=== PATIENT | male | born 1940 | race African-American/Black ===

== ENCOUNTER 2016-10-12 07:37 | Emergency (ER) | payer MEDICARE ==
[2016-10-12 07:55] VITALS: BP 164/72
[2016-10-12 08:13] LABS: Urine Bilirubin Negative (NEGATIVE); Urine Ketone Negative (NEGATIVE); Urine Nitrite Negative (NEGATIVE); Urine Protein Negative (NEGATIVE); Urine Urobilinogen Normal (NORMAL)
[2016-10-12 08:17] LABS: Urine Appearance Slightly Cloudy; Urine Blood 10 /ul (NEGATIVE); Urine Color Yellow
--- NOTE | 2016-10-12 08:18 | ERNOTE ---
ER Male HPI Date of Service: 10/12/16 Stated Complaint: UTI ER Male: testicular pain Time Seen by Provider: 10/12/16 08:07 Source: patient, RN notes reviewed Exam Limitations: no limitations Immunizations: IMMUNIZATION HX Immunizations Up to Date Yes History of Influenza Vaccine No Hx Pneumococcal Vaccination No Allergies/Adverse Reactions: Allergies No Known Allergies Allergy (Verified 10/12/16 07:54) Home Medications: HOME MEDICATIONS Acetaminophen [Tylenol] 650 mg PO Q4H PRN #0 tablet 09/22/16 [Last Taken Unknown ] Amlodipine Besylate [Norvasc] 5 mg PO HS #.1 tab 09/22/16 [Last Taken Unknown] Aspirin [Aspirin Enteric Coated] 81 mg PO DAILY #.1 tablet.dr 09/22/16 [Last Taken Unknown] Cholecalciferol (Vitamin D3) [Vitamin D3] 2,000 unit PO DAILY #.1 tablet [Last Taken Unknown] Glimepiride 4 mg PO DAILY #.1 tablet 09/22/16 [Last Taken Unknown] Lisinopril [Prinivil] 20 mg PO DAILY #.1 tablet 09/22/16 [Last Taken Unknown] Tamsulosin HCl [Flomax] 0.4 mg PO DAILY@1800 #60 cap 09/22/16 [Last Taken Unknown] Ciprofloxacin HCl [Cipro] 500 mg PO BID #14 tablet 10/12/16 [Last Taken Unknown] - History of Present Illness Narrative: Patient presents with left testicular pain sudden on onset. He noticed when he urinated this morning at slight blood. He is not having any abdominal pain no fever no chest pain or shortness of breath. His pain is very minimal. Patient states he's had pain like this in the past seasonal history kidney stones feels like maybe he is just passed one. He's had similar symptoms seen for similar issues is put on antibiotic and it took care thinks for at least's. Timing: Present: intermittent Quality: Present: mild Onset Location: Present: LLQ, scrotal Radiation: Present: none Prior Abdominal Problems: Present: none Modifying Factors - (Worsens): Absent: lying down, movement, urinating Associated Symptoms: Present: urinary frequency. Absent: fever/chills, nausea, vomiting, abdominal pain, dysuria, polyuria, loss of bladder control, low back pain, mass Review of Systems - Review of Systems Constitutional: Absent: fever, chills, weakness Respiratory: Present: no symptoms reported Cardiology: Present: no symptoms reported Gastrointestinal/Abdominal: Absent: nausea, vomiting, diarrhea, constipation, abdominal pain Genitourinary: Present: frequency, hematuria. Absent: pain, dysuria, decreased urinary output, discharge Neurological: Present: no symptoms reported Endocrine: Present: no symptoms reported - Patient's Past Medical History Patient History - Medical: Diabetes Type 2 Patient History - Cardiac/Respiratory: Hypertension Patient History - Cancer: No Hx of Cancer Patient History - Surgical Procedures: No surgical history - Family History Mother Family History - Medical: Family History - Cardiac/Respiratory: No pertinent hx Family History - Cancer: Colon Father Family History - Medical: Family History - Cardiac/Respiratory: Coronary Heart Disease - Social History Living Situations: home Does anyone smoke in the home?: Yes Smoking Status: Never smoker Have you smoked in the past 12 months: No Do you dip or chew tobacco: No Patient requests Smoking Cessation Consult: No Initiate information on Smoking Cessation: No Alcohol Use: none Drug Use: none Physical Exam - Physical Exam General Appearance: Present: wd/wn, alert, no apparent distress Ears, Nose, Throat: Present: normal ENT inspection, normal pharynx Neck: Present: normal inspection, nontender Respiratory: Present: no respiratory distress, normal breath sounds, no accessory muscle use, chest nontender, lungs clear Cardiovascular/Chest: Present: regular rate, rhythm, no murmur, normal peripheral pulses Gastrointestinal/Abdominal: Present: normal bowel sounds, nontender, nondistended, soft, no organomegaly Rectal Exam: Present: nontender, normal rectal tone Male Genitals Exam: Present: normal genitalia, normal prostate, no hernia Neurological Exam: Present: alert, oriented, normal mood/affect, no motor/ sensory deficits Skin Exam: Present: normal color, warm/dry Lymphatic Exam: Present: no adenopathy ED Progress - Results and Orders Patient's Lab Results:: I have reviewed the patient's lab results. - Vital Signs Patient's Vital Signs:: I have reviewed the patient's vital signs. Vital Signs: Vital Signs 10/12/16 07:48 Temperature 36.6 C Pulse Rate 89 Respiratory 16 Rate Blood Pressure 164/72 O2 Sat by Pulse 98 Oximetry - Progress/Reassessment Chief Complaint: Genitourinary Problem Progress:: Pain free at discharge - Transfer of Care Expected Disposition: Discharge Additional Notes: Patient doing quite well he defers on any imaging tests or lab work at this time. He will be placed on an antibiotic awaiting cultures. Follow-up with his family doctor in 2-3 days Returning back to the ER with any change or worsening symptoms. Warning signs and symptoms reviewed with the patient on return back to the ER with good understanding Departure Clinical Impression: Kidney stones UTI (urinary tract infection) Qualifiers: Urinary tract infection type: acute cystitis Hematuria presence: with hematuria Qualified Code(s): N30.01 - Acute cystitis with hematuria - Departure Disposition: Home self-care Condition: Good Instructions: Urinary Tract Infection, Adult, [id number], Kidney Stones, Easy -to-Read Referrals: Alissa Proctor FNP [Primary Care Provider] - Prescriptions: Ciprofloxacin HCl [Cipro] 500 mg PO BID #14 tablet
[2016-10-12 08:32] LABS: Urine Bacteria TRACE; Urine RBC TRACE /hpf (0-5)
== END 2016-10-12 08:52 | disposition home or self-care (01) ==
LOC: ER 07:37
DX: N30.01 Acute cystitis with hematuria (principal); N20.0 Calculus of kidney; I10 Essential (primary) hypertension

== ENCOUNTER 2017-04-20 08:55 | Emergency (ER) | payer MEDICARE ==
[2017-04-20] MEDS ORDERED: INSULIN LISPRO 100 UNITS/ML VIAL SC ONE (09:29)
[2017-04-20] MEDS ORDERED: TAMSULOSIN HCL 0.4 MG CAP.SR.24H PO ONE ×2 (09:43→09:47)
[2017-04-20] MEDS ORDERED: INSULIN LISPRO 100 UNITS/ML VIAL ONE (09:43)
[2017-04-20 09:47] LABS: Urine Bilirubin Negative (NEGATIVE); Urine Blood 25 /ul (NEGATIVE); Urine Ketone Negative (NEGATIVE); Urine Nitrite Negative (NEGATIVE); Urine Protein Negative (NEGATIVE); Urine Urobilinogen Normal (NORMAL)
[2017-04-20 09:54] LABS: Urine Appearance Clear; Urine Bacteria None Seen; Urine Color Yellow; Urine RBC TRACE /hpf (0-5); Urine WBC None Seen /hpf (0-5)
[2017-04-20 09:57] LABS: Hemoglobin 13.3 gm/dL (13.5-18.0); Mean Cell Volume 86.5 fl (78-100); Mean Corpuscular Hemoglobin 29.5 pg (27-31); Mean Corpuscular Hgb Conc 34.1 g/dl (32-36); Mean Platelet Volume 8.8 fl (6.0-9.5); Neutrophil # 5.4 K/mm3 (1.3-6.0); Neutrophil % 73.7 % (42-75.0); Platelet Count 260 K/mm3 (150-450); Red Blood Count 4.51 M/mm3 (4.7-6.0); White Blood Count 7.4 K/mm3 (4.0-10.5)
--- NOTE | 2017-04-20 10:02 | ERNOTE ---
ER Male HPI Date of Service: 04/20/17 Stated Complaint: TROUBLE URINATING ER Male: urinary retention Time Seen by Provider: 04/20/17 09:32 Source: patient Exam Limitations: no limitations Immunizations: IMMUNIZATION HX Immunizations Up to Date Yes History of Influenza Vaccine No Hx Pneumococcal Vaccination No Allergies/Adverse Reactions: Allergies No Known Allergies Allergy (Verified 04/20/17 09:04) Home Medications: HOME MEDICATIONS Acetaminophen [Tylenol] 650 mg PO Q4H PRN #0 tablet 09/22/16 [Last Taken Unknown ] Amlodipine Besylate [Norvasc] 5 mg PO HS #.1 tab 09/22/16 [Last Taken Unknown] Aspirin [Aspirin Enteric Coated] 81 mg PO DAILY #.1 tablet. 09/22/16 [Last Taken Unknown] Cholecalciferol (Vitamin D3) [Vitamin D3] 2,000 unit PO DAILY #.1 tablet [Last Taken Unknown] Glimepiride 4 mg PO DAILY #.1 tablet 09/22/16 [Last Taken Unknown] Lisinopril [Prinivil] 20 mg PO DAILY #.1 tablet 09/22/16 [Last Taken Unknown] Tamsulosin HCl [Flomax] 2 cap PO DAILY@1800 #60 cap 04/20/17 [Last Taken Unknown ] - History of Present Illness Narrative: Woke up this morning unable to void. Had over a liter of urine in his bladder. Took his flomax one daily this morning. Happened last year, but had been off his flomax for three days. Also passed a kidney stone at that time. Feels much better now that we put a catheter in. Sees the urologist, Dr. Gagnon in [place]. Timing: Present: getting worse Quality: Present: moderate Onset Location: Present: suprapubic Radiation: Present: none Prior Abdominal Problems: Present: none Modifying Factors - (Improves): Present: other - catheter Modifying Factors - (Worsens): Present: other - time Associated Symptoms: Present: other - sugar over 200,diabetic Prior Treatment: Absent: recently seen, treated by physician, recently hospitalized, currently on antibiotics, other Review of Systems - Review of Systems Constitutional: Present: no symptoms reported EYE: Present: no symptoms reported ENT: Present: no symptoms reported Respiratory: Present: no symptoms reported Cardiology: Present: no symptoms reported Gastrointestinal/Abdominal: Present: no symptoms reported Genitourinary: Present: See HPI Musculoskeletal: Present: no symptoms reported Skin: Present: no symptoms reported Neurological: Present: no symptoms reported Endocrine: Present: no symptoms reported Hematologic/Lymphatic: Present: no symptoms reported Psych: Present: no symptoms reported All Other Systems: All systems neg except as marked - Patient's Past Medical History Patient History - Medical: Diabetes Type 2, Kidney stone, Other - urinary retention Patient History - Cardiac/Respiratory: No pertinent hx Patient History - Cancer: No Hx of Cancer Patient History - Surgical Procedures: No surgical history Patient History - Other: None - Family History Mother Family History - Medical: Family History - Cardiac/Respiratory: No pertinent hx Father Family History - Medical: Family History - Cardiac/Respiratory: Coronary Heart Disease - Social History Living Situations: home Abuse History: No History of abuse Psych History: No pertinent hx Does anyone smoke in the home?: Yes Smoking Status: Never smoker Have you smoked in the past 12 months: No Alcohol Use: none Drug Use: none - Immunizations Immunizations Up to Date: Yes Hx Pneumococcal Vaccination: No History of Influenza Vaccine: No Physical Exam - Physical Exam General Appearance: Present: wd/wn, alert, no apparent distress Head Exam: Present: normal inspection Eye Exam: Normal inspection: bilateral, PERRL: bilateral, EOMI: bilateral Ears, Nose, Throat: Present: normal ENT inspection Neck: Present: normal inspection Respiratory: Present: no respiratory distress, normal breath sounds Cardiovascular/Chest: Present: regular rate, rhythm, no murmur Gastrointestinal/Abdominal: Present: normal bowel sounds, nontender - not since catheter, nondistended, soft, no organomegaly Male Genitals Exam: Present: normal genitalia - catheter Back Exam: Present: normal inspection Extremity Exam: Present: normal inspection, no edema Neurological Exam: Present: alert, oriented Skin Exam: Present: normal color, warm/dry ED Progress - Results and Orders Patient's Lab Results:: I have reviewed the patient's lab results. - Vital Signs Patient's Vital Signs:: I have reviewed the patient's vital signs. Vital Signs: Vital Signs 04/20/17 04/20/17 09:01 09:49 Temperature 36.7 C Pulse Rate 115 H 83 Respiratory 15 12 Rate Blood Pressure 143/94 145/78 O2 Sat by Pulse 100 96 Oximetry - Progress/Reassessment Chief Complaint: Genitourinary Problem Departure Clinical Impression: Urinary retention due to benign prostatic hyperplasia - Departure Disposition: Home self-care Condition: Good Instructions: Acute Urinary Retention, Male Additional Instructions: Followup with Dr. Gagnon next week. Prescriptions: Tamsulosin HCl [Flomax] 2 cap PO DAILY@1800 #60 cap
[2017-04-20 10:03] LABS: Anion Gap 12.4 mmol/L (6.8-13.8); BUN/Creatinine Ratio 11.6 (9.0-21.6); Calcium * 8.9 mg/dL (7.9-10.9); Carbon Dioxide 27.8 mmol/L (24-32.6); Estimated Creat Clear 63.1; Potassium 4.2 mmol/L (3.4-4.6)
[2017-04-20 11:16] VITALS: BP 137/78
== END 2017-04-20 11:45 | disposition home or self-care (01) ==
LOC: ER 08:55
PROC: BT40ZZZ Ultrasonography of Bladder (ICD-10-PCS; principal; 2017-04-20)
PROC: 0T9870Z Drainage of Bilateral Ureters with Drainage Device, Via Natural or Artificial Opening (ICD-10-PCS; 2017-04-20)
DX: N40.1 Benign prostatic hyperplasia with lower urinary tract symptoms (principal); R33.8 Other retention of urine; Z87.442 Personal history of urinary calculi; Z53.29 Procedure and treatment not carried out because of patient's decision for other reasons

== ENCOUNTER 2017-04-26 08:35 | Emergency (ER) | payer MEDICARE ==
--- NOTE | 2017-04-26 09:38 | ERNOTE ---
ER Male HPI Stated Complaint: BLADDER RETENTION ER Male: urinary retention Time Seen by Provider: 04/26/17 09:23 Source: patient Exam Limitations: no limitations Immunizations: IMMUNIZATION HX Immunizations Up to Date Yes History of Influenza Vaccine No Hx Pneumococcal Vaccination No Allergies/Adverse Reactions: Allergies No Known Allergies Allergy (Verified 04/26/17 09:11) Home Medications: HOME MEDICATIONS Acetaminophen [Tylenol] 650 mg PO Q4H PRN #0 tablet 09/22/16 [Last Taken Unknown ] Amlodipine Besylate [Norvasc] 5 mg PO HS #.1 tab 09/22/16 [Last Taken Unknown] Aspirin [Aspirin Enteric Coated] 81 mg PO DAILY #.1 tablet.dr 09/22/16 [Last Taken Unknown] Cholecalciferol (Vitamin D3) [Vitamin D3] 2,000 unit PO DAILY #.1 tablet [Last Taken Unknown] Glimepiride 4 mg PO DAILY #.1 tablet 09/22/16 [Last Taken Unknown] Lisinopril [Prinivil] 20 mg PO DAILY #.1 tablet 09/22/16 [Last Taken Unknown] Tamsulosin HCl [Flomax] 2 cap PO DAILY@1800 #60 cap 04/20/17 [Last Taken Unknown ] Ciprofloxacin HCl [Cipro] 500 mg PO BID #20 tab 04/26/17 [Last Taken Unknown] - History of Present Illness Narrative: The patient is here for acute urinary retention. He last urinated a small amount at 03:00 and non since. He was seen for urinary retention on 04/[address] but requested to have it removed later that they, no follow up with urology since. He was last seen for BPH by Dr Gagnon in November, had his dose of flomax increased, denies any other illness or symptoms. He had one prior episode in september 2016 Prior to being seen by me patient had a parikh placed by nurse with good output and is feeling much better now Review of Systems - Review of Systems Constitutional: Absent: recent illness, fever, chills ENT: Absent: sore throat Respiratory: Absent: shortness of breath Cardiology: Absent: chest pain Gastrointestinal/Abdominal: Absent: nausea, vomiting, diarrhea, abdominal pain Genitourinary: Present: See HPI. Absent: frequency, dysuria Musculoskeletal: Absent: back pain Neurological: Absent: headache - Patient's Past Medical History Patient History - Medical: Diabetes Type 2, Kidney stone, Other Patient History - Cardiac/Respiratory: No pertinent hx Patient History - Cancer: No Hx of Cancer Patient History - Surgical Procedures: No surgical history Patient History - Other: None - Family History Mother Family History - Medical: Family History - Cardiac/Respiratory: No pertinent hx Father Family History - Medical: Family History - Cardiac/Respiratory: Coronary Heart Disease - Social History Living Situations: home Abuse History: No History of abuse Psych History: No pertinent hx Does anyone smoke in the home?: Yes Alcohol Use: none Drug Use: none - Immunizations Immunizations Up to Date: Yes Hx Pneumococcal Vaccination: No History of Influenza Vaccine: No Physical Exam - Physical Exam General Appearance: Present: wd/wn, alert, no apparent distress Respiratory: Present: no respiratory distress, normal breath sounds, no accessory muscle use, lungs clear Cardiovascular/Chest: Present: regular rate, rhythm, no murmur Gastrointestinal/Abdominal: Present: normal bowel sounds, nontender, nondistended, soft Back Exam: Present: no CVA tenderness Extremity Exam: Present: no edema Neurological Exam: Present: alert, oriented, normal mood/affect Skin Exam: Present: normal color, warm/dry ED Progress - Results and Orders Patient's Lab Results:: I have reviewed the patient's lab results. Results and Orders: reviewed labs from six days ago - Vital Signs Patient's Vital Signs:: I have reviewed the patient's vital signs. Vital Signs: Vital Signs 04/26/17 09:07 Temperature 36.7 C Pulse Rate 122 H Respiratory 12 Rate Blood Pressure 137/78 O2 Sat by Pulse 99 Oximetry - Progress/Reassessment Chief Complaint: Genitourinary Problem Progress Note-Subjective: 04/26/17 10:20 parikh draining clear urine, discussed results and follow up with patient Departure Clinical Impression: Urinary retention due to benign prostatic hyperplasia UTI (urinary tract infection) Qualifiers: Urinary tract infection type: acute cystitis Hematuria presence: with hematuria Qualified Code(s): N30.01 - Acute cystitis with hematuria - Departure Disposition: Home self-care Condition: Good Instructions: Acute Urinary Retention, Male, [id number] Additional Instructions: call Dr Gagnon first thing on Friday morning for follow up, take all your medications as prescribed Referrals: Ryne Gagnon MD [Associate] - Prescriptions: Ciprofloxacin HCl [Cipro] 500 mg PO BID #20 tab
[2017-04-26 09:57] LABS: Urine Bilirubin Negative (NEGATIVE); Urine Blood 250 /ul (NEGATIVE); Urine Ketone Negative (NEGATIVE); Urine Protein 15 mg/dL (NEGATIVE)
[2017-04-26 10:09] LABS: Urine Nitrite Positive (NEGATIVE)
[2017-04-26 10:10] LABS: Urine Appearance Slightly Cloudy; Urine Bacteria 2+; Urine Color Amber; Urine RBC 25-50 /hpf (0-5); Urine WBC TRACE /hpf (0-5)
[2017-04-26 10:19] VITALS: BP 136/74
[2017-04-26] MEDS ORDERED: CIPROFLOXACIN HCL 250 MG TABLET PO ONE (10:19)
[2017-04-26] MEDS ORDERED: CIPROFLOXACIN HCL 250 MG TABLET ONE (10:27)
== END 2017-04-26 10:30 | disposition home or self-care (01) ==
LOC: ER 08:35
PROC: 0T9B70Z Drainage of Bladder with Drainage Device, Via Natural or Artificial Opening (ICD-10-PCS; principal; 2017-04-26)
DX: N40.1 Benign prostatic hyperplasia with lower urinary tract symptoms (principal); R33.8 Other retention of urine; N30.01 Acute cystitis with hematuria; E11.9 Type 2 diabetes mellitus without complications; Z87.442 Personal history of urinary calculi; Z77.22 Contact with and (suspected) exposure to environmental tobacco smoke (acute) (chronic)

== ENCOUNTER 2017-04-27 08:30 | Emergency (ER) | payer MEDICARE ==
[2017-04-27 08:39] VITALS: BP 152/85
--- NOTE | 2017-04-27 08:52 | ERNOTE ---
ER Male HPI Date of Service: 04/27/17 Stated Complaint: BLADDER RETENTION ER Male: other - wants parikh out Time Seen by Provider: 04/27/17 08:41 Source: patient Exam Limitations: no limitations Immunizations: IMMUNIZATION HX Immunizations Up to Date Yes History of Influenza Vaccine No Hx Pneumococcal Vaccination No Allergies/Adverse Reactions: Allergies No Known Allergies Allergy (Verified 04/27/17 08:39) Home Medications: HOME MEDICATIONS Acetaminophen [Tylenol] 650 mg PO Q4H PRN #0 tablet 09/22/16 [Last Taken Unknown ] Amlodipine Besylate [Norvasc] 5 mg PO HS #.1 tab 09/22/16 [Last Taken Unknown] Aspirin [Aspirin Enteric Coated] 81 mg PO DAILY #.1 tablet.dr 09/22/16 [Last Taken Unknown] Cholecalciferol (Vitamin D3) [Vitamin D3] 2,000 unit PO DAILY #.1 tablet [Last Taken Unknown] Glimepiride 4 mg PO DAILY #.1 tablet 09/22/16 [Last Taken Unknown] Lisinopril [Prinivil] 20 mg PO DAILY #.1 tablet 09/22/16 [Last Taken Unknown] Tamsulosin HCl [Flomax] 2 cap PO DAILY@1800 #60 cap 04/20/17 [Last Taken Unknown ] Ciprofloxacin HCl [Cipro] 500 mg PO BID #20 tab 04/26/17 [Last Taken Unknown] - History of Present Illness Narrative: patient had a Parikh placed in the ED yesterday. He presents to day to have it removed. he states he has had a Parikh in the past and had it out the next day. he denies any symptoms. No fever. No abdominal pain. No dysuria. He sees urology in [place]. I recommend to him that the Parikh should not be removed. He denies any other problems with the Parikh or new complaints. Quality: Present: other - none Onset Location: Present: other - no abdominal pain Prior Abdominal Problems: Present: similar symptoms Modifying Factors - (Improves): Present: other - Sx resolved with Parikh Review of Systems - Review of Systems Constitutional: Absent: fever Respiratory: Absent: shortness of breath Cardiology: Absent: chest pain Gastrointestinal/Abdominal: Present: no symptoms reported Genitourinary: Present: other - No Parikh problems - Patient's Past Medical History Patient History - Medical: Diabetes Type 2, Kidney stone, Other Patient History - Cardiac/Respiratory: No pertinent hx Patient History - Cancer: No Hx of Cancer Patient History - Surgical Procedures: No surgical history Patient History - Other: None - Family History Mother Family History - Medical: Family History - Cardiac/Respiratory: No pertinent hx Father Family History - Medical: Family History - Cardiac/Respiratory: Coronary Heart Disease - Social History Living Situations: home Abuse History: No History of abuse Psych History: No pertinent hx Does anyone smoke in the home?: Yes Smoking Status: Never smoker Alcohol Use: none Drug Use: none - Immunizations Immunizations Up to Date: Yes Hx Pneumococcal Vaccination: No History of Influenza Vaccine: No Physical Exam - Physical Exam General Appearance: Present: alert, no apparent distress Head Exam: Present: normal inspection Eye Exam: Normal inspection: bilateral Respiratory: Present: no respiratory distress Gastrointestinal/Abdominal: Present: normal bowel sounds, nontender, nondistended, soft. Absent: tenderness Back Exam: Present: normal range of motion Extremity Exam: Present: normal range of motion Neurological Exam: Present: alert, no motor/sensory deficits ED Progress - Vital Signs Patient's Vital Signs:: I have reviewed the patient's vital signs. Vital Signs: Vital Signs 04/27/17 08:35 Temperature 36.7 C Pulse Rate 97 Respiratory 16 Rate Blood Pressure 152/85 O2 Sat by Pulse 98 Oximetry - Progress/Reassessment Chief Complaint: Genitourinary Problem Progress Note-Subjective: 04/27/17 08:51 I recommend the Parikh stay in place he initially was not agreeable to this, however he then changed his mind and decided to leave the Parikh in place. He will see his Urologist tomorrow. I discussed warning signs and reasons to return as well as the need for close f/u. Departure Clinical Impression: Parikh catheter in place - Departure Disposition: Home self-care Condition: Stable Additional Instructions: Call your Urologist in the morning. Return for fever, abdominal pain, trouble with Parikh or if your condition worsens or changes in any way. Referrals: Alissa Proctor FNP [Primary Care Provider] -
== END 2017-04-27 08:52 | disposition home or self-care (01) ==
LOC: ER 08:30
DX: Z46.6 Encounter for fitting and adjustment of urinary device (principal); Z96.0 Presence of urogenital implants; E11.9 Type 2 diabetes mellitus without complications; Z87.442 Personal history of urinary calculi

== ENCOUNTER 2017-06-22 07:17 | Emergency (ER) | payer MEDICARE ==
--- NOTE | 2017-06-22 07:41 | ERNOTE ---
<Farhana Sibley - Last Filed: 06/22/17 10:45> ER Male HPI Stated Complaint: BLOOD IN URINE ER Male: urinary retention Time Seen by Provider: 06/22/17 09:00 Source: patient Exam Limitations: no limitations Immunizations: IMMUNIZATION HX Immunizations Up to Date Yes History of Influenza Vaccine No Hx Pneumococcal Vaccination No Allergies/Adverse Reactions: Allergies No Known Allergies Allergy (Verified 06/22/17 07:26) Home Medications: HOME MEDICATIONS Acetaminophen [Tylenol] 650 mg PO Q4H PRN #0 tablet 09/22/16 [Last Taken Unknown ] Amlodipine Besylate [Norvasc] 5 mg PO HS #.1 tab 09/22/16 [Last Taken Unknown] Aspirin [Aspirin Enteric Coated] 81 mg PO DAILY #.1 tablet.dr 09/22/16 [Last Taken Unknown] Cholecalciferol (Vitamin D3) [Vitamin D3] 2,000 unit PO DAILY #.1 tablet [Last Taken Unknown] Glimepiride 4 mg PO DAILY #.1 tablet 09/22/16 [Last Taken Unknown] Lisinopril [Prinivil] 20 mg PO DAILY #.1 tablet 09/22/16 [Last Taken Unknown] Tamsulosin HCl [Flomax] 2 cap PO DAILY@1800 #60 cap 04/20/17 [Last Taken Unknown ] Ciprofloxacin HCl [Cipro] 500 mg PO BID #20 tab 04/26/17 [Last Taken Unknown] ED Progress - Vital Signs Vital Signs: Vital Signs 06/22/17 07:24 Pulse Rate 108 H Respiratory 14 Rate Blood Pressure 193/108 O2 Sat by Pulse 100 Oximetry - Progress/Reassessment Chief Complaint: Genitourinary Problem Procedures Complications: Pt florecita procedure well Comments: parikh was placed and eventually stopped draining secondary to a clot. Three way catheter placed and irrigated with good flow. Pt will be discharged with parikh catheter. f/u with urology Departure Clinical Impression: Urinary outflow obstruction - Departure Disposition: Home self-care Condition: Good Instructions: Parikh Catheter Care, Adult, Acute Urinary Retention, Male Referrals: Alissa Proctor FNP [Primary Care Provider] - <Allen Bardales - Last Filed: 06/28/17 21:19> ER Male HPI Date of Service: 06/22/17 ER Male: urinary retention Source: patient Exam Limitations: no limitations Immunizations: IMMUNIZATION HX Immunizations Up to Date Yes History of Influenza Vaccine No Hx Pneumococcal Vaccination No - History of Present Illness Narrative: 76 year old that has not been able to urinate adeuqately since this morning. He notes gross hematuria. There has been three other instances of urinary retention. S/P prostectomy. PMH: DM, BPH, urinary retention, UTI, kidney stones, and HTN Timing: Present: constant, getting worse Quality: Present: severe Onset Location: Present: suprapubic Radiation: Present: none Activities at Onset: Present: none Prior Abdominal Problems: Present: similar symptoms Modifying Factors - (Improves): Present: other - walking Modifying Factors - (Worsens): Present: lying down Prior Treatment: Present: treated by physician Review of Systems - Review of Systems Constitutional: Present: no symptoms reported EYE: Present: no symptoms reported ENT: Present: no symptoms reported Respiratory: Present: no symptoms reported Cardiology: Present: no symptoms reported Gastrointestinal/Abdominal: Present: no symptoms reported Genitourinary: Present: See HPI Musculoskeletal: Present: no symptoms reported Skin: Present: no symptoms reported Neurological: Present: no symptoms reported Endocrine: Present: See HPI Hematologic/Lymphatic: Present: no symptoms reported Psych: Present: no symptoms reported - Patient's Past Medical History Patient History - Medical: Diabetes Type 2, Kidney stone, Other Patient History - Cardiac/Respiratory: No pertinent hx Patient History - Cancer: No Hx of Cancer Patient History - Surgical Procedures: Other Patient History - Other: None - Family History Mother Family History - Medical: Family History - Cardiac/Respiratory: No pertinent hx Father Family History - Medical: Family History - Cardiac/Respiratory: Coronary Heart Disease - Social History Living Situations: home Abuse History: No History of abuse Psych History: No pertinent hx Does anyone smoke in the home?: Yes Smoking Status: Never smoker Alcohol Use: none Drug Use: none - Immunizations Immunizations Up to Date: Yes Hx Pneumococcal Vaccination: No History of Influenza Vaccine: No Physical Exam - Physical Exam General Appearance: Present: mild distress Head Exam: Present: normal inspection Eye Exam: Normal inspection: bilateral Ears, Nose, Throat: Present: normal ENT inspection Neck: Present: normal inspection Respiratory: Present: no respiratory distress Cardiovascular/Chest: Present: tachycardia Gastrointestinal/Abdominal: Present: nontender Male Genitals Exam: Present: normal genitalia Back Exam: Present: normal inspection Extremity Exam: Present: normal inspection Neurological Exam: Present: alert, oriented, normal mood/affect, 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 The bladder scan demonstrated greater than 800 cc. - Transfer of Care Physician Sign Out: Allen Bardales Receiving Physician: Farhana Sibley Pending Results: Labs Expected Disposition: Discharge
[2017-06-22 07:56] LABS: Hematocrit 40.4 % (42.0-52.0); Hemoglobin 13.2 gm/dL (13.5-18.0); Mean Corpuscular Hemoglobin 28.8 pg (27-31); Mean Corpuscular Hgb Conc 32.7 g/dl (32-36); Mean Platelet Volume 9.1 fl (6.0-9.5); Neutrophil # 6.5 K/mm3 (1.3-6.0); Neutrophil % 59.3 % (42-75.0); Platelet Count 346 K/mm3 (150-450); Red Blood Count 4.59 M/mm3 (4.7-6.0); Red Cell Distribution Width 11.9 % (11.5-14.0); White Blood Count 10.9 K/mm3 (4.0-10.5)
[2017-06-22 07:57] LABS: Urine Bilirubin Negative (NEGATIVE); Urine Blood 250 /ul (NEGATIVE); Urine Ketone 15 mg/dL (NEGATIVE); Urine Protein >=300 mg/dL (NEGATIVE); Urine Specific Gravity 1.015 SP.GR. (1.005-1.030); Urine Urobilinogen Normal (NORMAL)
[2017-06-22 08:01] LABS: Urine Color Red; Urine Nitrite Positive (NEGATIVE)
[2017-06-22 08:02] LABS: Urine Bacteria 1+; Urine RBC >50 /hpf (0-5); Urine WBC TRACE /hpf (0-5)
[2017-06-22 08:04] LABS: Anion Gap 15.8 mmol/L (6.8-13.8); BUN/Creatinine Ratio 10.8 (9.0-21.6); Calcium * 9.1 mg/dL (7.9-10.9); Carbon Dioxide 26.5 mmol/L (24-32.6); Estimated Creat Clear 53.2; Potassium 4.3 mmol/L (3.4-4.6)
[2017-06-22 08:05] LABS: Urine Appearance Turbid
[2017-06-22] MEDS ORDERED: TAMSULOSIN HCL 0.4 MG CAP.SR.24H PO ONE ×2 (08:46→08:49)
[2017-06-22 11:00] VITALS: BP 129/59
== END 2017-06-22 11:31 | disposition home or self-care (01) ==
LOC: ER 07:17
PROC: 0T9B70Z Drainage of Bladder with Drainage Device, Via Natural or Artificial Opening (ICD-10-PCS; principal; 2017-06-22)
PROC: 0T9B70Z Drainage of Bladder with Drainage Device, Via Natural or Artificial Opening (ICD-10-PCS; 2017-06-22)
PROC: 0T9B70Z Drainage of Bladder with Drainage Device, Via Natural or Artificial Opening (ICD-10-PCS; 2017-06-22)
DX: N13.9 Obstructive and reflux uropathy, unspecified (principal); E11.9 Type 2 diabetes mellitus without complications; Z87.442 Personal history of urinary calculi; Z77.22 Contact with and (suspected) exposure to environmental tobacco smoke (acute) (chronic)